=== PATIENT | female | born 2000 | race African-American/Black ===

== ENCOUNTER 2021-09-10 20:28 | Emergency (ER) | payer OTHER ==
[2021-09-10 20:51] VITALS: BP 117/78; PULSE 74; TEMP 98.3; BMI 27.8
[2021-09-10 22:36] LABS: BASO % 0.3 % (0-2.0); EOS % 2.3 % (0-4.5); HEMATOCRIT 29.4 % (32.4-45.2); HEMOGLOBIN 9.9 GM/dL (10.7-15.3); LYMPH % 25.9 % (8-40); MCH 28.9 pg (25.7-33.7); MCHC 33.7 g/dl (32.0-36.0); MEAN CELL VOLUME 85.9 fl (80-96); MEAN PLT VOLUME 7.5 fl (7.5-11.1); MONO % 4.5 % (3.8-10.2); PLATELET COUNT 397 10^3/uL (134-434); RBC 3.43 M/mm3 (3.60-5.2); RDW 15.3 % (11.6-15.6); WHITE BLOOD COUNT 11.3 K/mm3 (4.0-10.0)
[2021-09-10 22:40] LABS: INR 1.06 (0.83-1.09); PROTHROMBIN TIME (PATIENT) 11.9 SEC (9.7-13.0)
[2021-09-10 22:42] LABS: CALCIUM 9.3 mg/dL (8.5-10.1)
[2021-09-10 22:43] LABS: ACTIVATED PTT 27.4 SECONDS (25.2-36.5); ALBUMIN 4.4 g/dl (3.4-5.0); BLOOD UREA NITROGEN 15.5 mg/dL (7-18)
[2021-09-10 22:46] LABS: CREATININE 0.7 mg/dL (0.55-1.3)
[2021-09-10 22:47] LABS: BILIRUBIN,TOTAL 0.3 mg/dL (0.2-1)
[2021-09-10 22:48] LABS: TOT PROT 8.4 g/dl (6.4-8.2)
[2021-09-11 00:55] LABS: EPI CELLS 27 /uL (0-25.1); HYALINE CASTS 2 /uL (0-3.1); PH,URINE 5.5 (5.0-8.0); URINE APPEARANCE CLEAR; URINE BACTERIA 0 /uL (0-1359); URINE BILIRUBIN NEGATIVE (NEGATIVE); URINE COLOR YELLOW; URINE GLUCOSE (UA) NEGATIVE (NEGATIVE); URINE KETONE TRACE (NEGATIVE); URINE LEUK ESTERASE 1+ (NEGATIVE); URINE NITRITE NEGATIVE (NEGATIVE); URINE PROTEIN 1+ (NEGATIVE); URINE RBC 6330 /uL (0-23.9); URINE WBC 207 /uL (0-25.8)
== END 2021-09-11 01:09 | disposition home or self-care (01) ==
LOC: JER 20:28
DX: N92.1 Excessive and frequent menstruation with irregular cycle (principal)
CPT/HCPCS: 36415; 76830-TC; 80053; 81003; 84439; 84443; 84703; 85025; 85610; 85730; 86850; 86900; 86901; 87086; 99284-25